=== PATIENT | female | born 2000 | race Two or more races ===

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

== ENCOUNTER 2022-02-20 17:46 | Emergency (ER) | payer MEDICAID, OTHER ==
[~2022-02-20] VITALS: Ht 162.6 cm; Wt 115.6 kg
[2022-02-20 20:19] LABS: Basophils # (auto) 0 10 ^3/uL (0-0.2); Basophils % (auto) 0.3 % (0.0-2.0); Eosinophils # (auto) 0.1 10 ^3/uL (0-0.8); Hematocrit 39.4 % (36.0-46.0); Hemoglobin 13.1 g/dL (12.2-16.2); Lymphocytes # (auto) 0.6 10 ^3/uL (0.4-5.4); Lymphocytes % (auto) 5.6 % (10.0-50.0); Mean Corpuscular Hemoglobin 29.4 pg (28.0-32.0); Mean Corpuscular Hgb Conc. 33.2 g/dL (32.0-36.0); Mean Corpuscular Volume 88.5 fL (80.0-100.0); Monocytes # (auto) 0.7 10 ^3/uL (0-1.3); Monocytes % (auto) 6.1 % (0.0-12.0); Neutrophils # (auto) 9.3 10 ^3/uL (1.6-8.6); Red Blood Cells 4.46 10^6/uL (4.0-5.20); Red Cell Distribution Width 13.9 % (11.8-14.3); White Blood Cell 10.7 10^3/uL (4.4-10.8)
[2022-02-20 20:46] LABS: Albumin 3.2 g/dL (3.4-5.0); Potassium 3.6 mmol/L (3.5-5.1)
[2022-02-20 20:48] LABS: BUN/Creatinine Ratio 10.2
[2022-02-20 20:49] LABS: Bilirubin, Total 0.5 mg/dL (0.2-1.0); Total Protein 7.4 g/dL (6.4-8.2)
[2022-02-20 22:48] LABS: Urine Blood Normal /uL (Negative); Urine Specific Gravity 1.025 (1.001-1.035)
[2022-02-21] MEDS ORDERED: PREN-96 PO (05:36)
[2022-02-21 06:04] VITALS: BP 143/84
== END 2022-02-21 06:14 | disposition home or self-care (01) ==
LOC: ER 17:46
DX: O23.42 Unspecified infection of urinary tract in pregnancy, second trimester (principal); N39.0 Urinary tract infection, site not specified; Z3A.22 22 weeks gestation of pregnancy
CPT/HCPCS: 36415; 76805; 80053; 81003; 84702; 85025

== ENCOUNTER 2022-12-09 14:15 | Inpatient (IN) | payer MEDICAID, OTHER ==
[~2022-12-09] VITALS: Ht 162.6 cm; Wt 110.1 kg
[~2022-12-09 14:15] MED LIST: PREN-96 PO
[2022-12-09 14:57] LABS: Basophils # (auto) 0 10 ^3/uL (0-0.2); Basophils % (auto) 0.2 % (0.0-2.0); Eosinophils # (auto) 0 10 ^3/uL (0-0.8); Eosinophils % (auto) 0.1 % (0.0-7.0); Hematocrit 48.2 % (36.0-46.0); Hemoglobin 15.9 g/dL (12.2-16.2); Lymphocytes # (auto) 0.9 10 ^3/uL (0.4-5.4); Lymphocytes % (auto) 7.1 % (10.0-50.0); Mean Corpuscular Hemoglobin 28.9 pg (28.0-32.0); Mean Corpuscular Hgb Conc. 32.9 g/dL (32.0-36.0); Mean Corpuscular Volume 87.7 fL (80.0-100.0); Monocytes % (auto) 7.6 % (0.0-12.0); Neutrophils # (auto) 10.7 10 ^3/uL (1.6-8.6); Nucleated Red Blood Cells % 0.1 %; Red Cell Distribution Width 18.3 % (11.8-14.3); White Blood Cell 12.6 10^3/uL (4.4-10.8)
[2022-12-09] MEDS ORDERED: SODIUM CHLORIDE 0.9% 2,000 ML IV ONE (15:00)
[2022-12-09] MEDS ORDERED: ONDANSETRON HCL 4 MG/2 ML VIAL IV ONE (15:00)
[2022-12-09 15:41] LABS: Urine Bacteria NONE SEEN /hpf (None Seen); Urine Blood TRACE /uL (Negative); Urine Clarity Clear (Clear); Urine Color Colorless (Yellow); Urine Hyaline Cast FEW /lpf (0 - 2); Urine Mucus FEW (None Seen); Urine Protein, UAD 2+ (Negative); Urine Specific Gravity 1.028 (1.001-1.035); Urine Urobilinogen Normal (Negative); Urine WBC 1 /hpf (0 - 5)
[2022-12-09 16:35] LABS: Alanine Aminotransferase 18 U/L (7-40); Albumin 4.3 g/dL (3.2-4.8); Alkaline Phosphatase 203 U/L (46-116); Anion Gap 17.00001 (5-15); Aspartate Aminotransferase 14 U/L (13-40); Bilirubin, Total 0.6 mg/dL (0.2-1.0); Calcium 8.5 mg/dL (8.7-10.4); Total Protein 7.3 g/dL (5.7-8.2)
[2022-12-09 16:36] LABS: BUN/Creatinine Ratio 4.5 (10.0-20.0)
[2022-12-09 16:37] LABS: Blood Urea Nitrogen < 5 mg/dL (9-23); Carbon Dioxide < 10 mmol/L (20-30); Chloride 106 mmol/L (98-107); Glucose 534 mg/dL (74-106); Potassium 2.7 mmol/L (3.5-5.1); Sodium 133 mmol/L (136-145)
[2022-12-09] MEDS ORDERED: DEXTROSE (50%) 50ML SYRG IV PRN (16:45)
[2022-12-09] MEDS ORDERED: POTASSIUM CHL 20MEQ/100ML 200 ML IV PRN (16:45)
[2022-12-09] MEDS ORDERED: INSULIN LANTUS (GLARGINE) 1 /0.01ml (100units/ml) SC ONE (16:45)
[2022-12-09] MEDS: InsuLIN R (HUMAN) 100 UNITS in SODIUM CHL 0.9% 99 ML IV SCH ×2 (16:45→23:20)
[2022-12-09] MEDS ORDERED: POTASSIUM EFFERVESENT TAB 25 MEQ PO ONE (17:00)
[2022-12-09] MEDS: SODIUM CHLORIDE 0.9% 1,000 ML IV SCH ×2 (17:10→19:48)
[2022-12-09] MEDS ORDERED: hydrALAZINE HCL 20 MG/ML VL IV PRN (17:15)
[2022-12-09] MEDS ORDERED: KETOROLAC TROMETH 30 MG/ML 1ML VIAL IV ONE (17:15)
[2022-12-09] MEDS ORDERED: NITROGLYCERIN 0.4 MG SL TAB SL PRN (17:15)
[2022-12-09] MEDS ORDERED: cefTRIAXone 1GM/50ML D5W 50 ML IV ONE (17:15)
[2022-12-09] MEDS ORDERED: PANTOPRAZOLE 40 MG/10 ML VIAL INJ IV ONE (17:45)
[2022-12-09 18:00] LABS: Phosphorus 1.7 mg/dL (2.4-5.1)
[2022-12-09] MEDS: ACCU-CHEK COMFORT CURVE STRIP VI SCH ×4 (18:00→23:00)
[2022-12-09 18:14] VITALS: PULSE 118; RESP 24; O2SAT 100
[2022-12-09 18:53] LABS: Chloride 109 mmol/L (98-107); Sodium 134 mmol/L (136-145)
[2022-12-09 18:54] LABS: Anion Gap 15.00001 (5-15)
[2022-12-09 18:55] LABS: Calcium 8.5 mg/dL (8.7-10.4)
[2022-12-09 19:00] LABS: Triglycerides 305 mg/dL (< 150)
[2022-12-09 19:01] LABS: BUN/Creatinine Ratio 4.5 (10.0-20.0); Blood Urea Nitrogen < 5 mg/dL (9-23); LDL Cholesterol 241 mg/dL (< 100)
[2022-12-09 19:02] LABS: Carbon Dioxide < 10 mmol/L (20-30); Cholesterol 312 mg/dL (< 200); Glucose 464 mg/dL (74-106); HDL Cholesterol 28 mg/dL (40-59); Potassium 2.6 mmol/L (3.5-5.1)
[2022-12-09 19:30] VITALS: PULSE 101; RESP 34; O2SAT 97
[2022-12-09] MEDS ORDERED: POTASSIUM CHL 20MEQ/100ML 100 ML IV ONE (20:30)
[2022-12-09] MEDS ORDERED: SODIUM CHLORIDE 0.9% 1,000 ML IV SCH ×2 (20:45→22:45)
[2022-12-09] MEDS ORDERED: SODIUM BICARBONATE 8.4 % INJ 50ML VIAL IV ONE ×2 (22:30→23:12)
[2022-12-09] MEDS ORDERED: SODIUM BICARBONATE 50ML VIAL 100 ML in SOD CHL 0.45% 1,000 ML IV SCH (22:30)
[2022-12-09 22:55] LABS: Anion Gap 15.00001 (5-15); Chloride 113 mmol/L (98-107); Potassium 3.3 mmol/L (3.5-5.1); Sodium 138 mmol/L (136-145)
[2022-12-09 22:56] LABS: Calcium 8.1 mg/dL (8.7-10.4)
[2022-12-09 23:01] LABS: Glucose 342 mg/dL (74-106)
[2022-12-09 23:07] LABS: BUN/Creatinine Ratio 5.4 (10.0-20.0); Blood Urea Nitrogen < 5 mg/dL (9-23)
[2022-12-09 23:15] LABS: Carbon Dioxide < 10 mmol/L (20-30)
[2022-12-10] VITALS (63 sets, daily range): BP systolic 124–172; BP diastolic 39–114; PULSE 103–126; RESP 25–36; TEMP 97.6–99.1; O2SAT 96–100
[2022-12-10] MEDS: ACCU-CHEK COMFORT CURVE STRIP VI SCH ×16 (00:24→22:37)
[2022-12-10] MEDS: MORPHINE SULFATE INJ 2 MG/ml SYRG IV PRN ×5 (00:59→23:34)
[2022-12-10] MEDS ORDERED: SODIUM BICARBONATE 50ML VIAL 150 ML in SOD CHL 0.45% 1,000 ML IV SCH ×2 (02:00→02:45)
[2022-12-10] MEDS ORDERED: SODIUM BICARBONATE 8.4 % INJ 50ML VIAL IV ONE ×2 (02:00→10:30)
[2022-12-10] MEDS ORDERED: SODIUM BICARBONATE 8.4% INJ 50ML SYRINGE ONE ×2 (02:20→02:21)
[2022-12-10 04:26] LABS: Basophils # (auto) 0 10 ^3/uL (0-0.2); Basophils % (auto) 0.2 % (0.0-2.0); Eosinophils # (auto) 0 10 ^3/uL (0-0.8); Hematocrit 43.3 % (36.0-46.0); Hemoglobin 14.3 g/dL (12.2-16.2); Lymphocytes # (auto) 1.3 10 ^3/uL (0.4-5.4); Lymphocytes % (auto) 8.9 % (10.0-50.0); Mean Corpuscular Hemoglobin 28.2 pg (28.0-32.0); Mean Corpuscular Volume 85.4 fL (80.0-100.0); Monocytes # (auto) 1.9 10 ^3/uL (0-1.3); Monocytes % (auto) 13.2 % (0.0-12.0); Neutrophils # (auto) 11.4 10 ^3/uL (1.6-8.6); Neutrophils % (auto) 77.7 % (37.0-80.0); Nucleated Red Blood Cells % 0.1 %; Red Blood Cells 5.06 10^6/uL (4.0-5.20); Red Cell Distribution Width 18.5 % (11.8-14.3); White Blood Cell 14.7 10^3/uL (4.4-10.8)
[2022-12-10] MEDS: ONDANSETRON HCL 4 MG/2 ML VIAL IV PRN ×3 (05:36→16:19)
[2022-12-10] MEDS ORDERED: InsuLIN R (HUMAN) 100 UNITS in SODIUM CHL 0.9% 99 ML IV SCH ×2 (06:15→22:45)
[2022-12-10 07:23] LABS: Chloride 113 mmol/L (98-107); Sodium 141 mmol/L (136-145)
[2022-12-10 07:26] LABS: Anion Gap 18.00001 (5-15)
[2022-12-10 07:27] LABS: Calcium 8.8 mg/dL (8.7-10.4)
[2022-12-10 07:32] LABS: Alkaline Phosphatase 203 U/L (46-116); Glucose 250 mg/dL (74-106)
[2022-12-10 07:34] LABS: Aspartate Aminotransferase 19 U/L (13-40); Bilirubin, Total 0.8 mg/dL (0.2-1.0); Total Protein 7.8 g/dL (5.7-8.2)
[2022-12-10 07:48] LABS: Alanine Aminotransferase 22 U/L (7-40); Albumin 4.5 g/dL (3.2-4.8); BUN/Creatinine Ratio 6.5 (10.0-20.0); Blood Urea Nitrogen < 5 mg/dL (9-23)
[2022-12-10 07:54] LABS: Carbon Dioxide < 10 mmol/L (20-30)
[2022-12-10 07:55] LABS: Potassium 1.9 mmol/L (3.5-5.1)
[2022-12-10] MEDS: PANTOPRAZOLE 40 MG/10 ML VIAL INJ IV SCH (08:12)
[2022-12-10] MEDS ORDERED: POTASSIUM CHLORIDE 80 MEQ, LIDOCAINE 1% (LOCAL ANESTH.) 6 ML in SODIUM CHL 0.9% 500 ML IV ONE (08:15)
[2022-12-10] MEDS ORDERED: POTASSIUM CHL 20 Meq TABLET PO ONE (08:15)
[2022-12-10 08:22] LABS: Base Excess -19.3 mmol/L (-2.0-2.0)
[2022-12-10] MEDS ORDERED: POTASSIUM EFFERVESENT TAB 25 MEQ PO ONE (08:30)
[2022-12-10 09:32] LABS: INR 1.04 (0.9-1.15); Partial Thromboplastin Time 28.1 SEC (24.5-34.5); Prothrombin Time 10.9 sec (9.3-11.8)
[2022-12-10] MEDS: cefTRIAXone 1GM/50ML D5W 50 ML IV SCH (09:58)
[2022-12-10] MEDS: ENOXAPARIN SOD 40 MG/0.4 ML SYRINGE SC SCH (09:59)
[2022-12-10] MEDS ORDERED: INSULIN LANTUS (GLARGINE) 1 /0.01ml (100units/ml) SC SCH (10:00)
[2022-12-10] MEDS ORDERED: SOD CHL 0.9%/ KCL 40MEQ 1,000 ML IV SCH (10:15)
[2022-12-10] MEDS: MAGNESIUM SULFATE 1GM/100ML 100 ML IV SCH ×2 (10:41→12:02)
[2022-12-10] MEDS ORDERED: LIDOCAINE 1% (LOCAL ANESTH.) PF 5ml SDV ID ONE (11:15)
[2022-12-10 12:29] LABS: Calcium 9.2 mg/dL (8.5-10.1)
[2022-12-10 12:35] LABS: Glucose 342 mg/dL (74-106)
[2022-12-10 12:40] LABS: BUN/Creatinine Ratio 5.8 (10.0-20.0); Blood Urea Nitrogen < 5 mg/dL (9-23)
[2022-12-10 12:42] LABS: Carbon Dioxide < 10 mmol/L (20-30)
[2022-12-10 12:52] LABS: Anion Gap 19.00001 (5-15); Chloride 113 mmol/L (98-107); Sodium 142 mmol/L (136-145)
[2022-12-10 12:54] LABS: Potassium 2.9 mmol/L (3.5-5.1)
[2022-12-10 16:13] LABS: Chloride 119 mmol/L (98-107); Sodium 144 mmol/L (136-145)
[2022-12-10 16:14] LABS: Anion Gap 15.00001 (5-15); Calcium 9.2 mg/dL (8.7-10.4)
[2022-12-10 16:19] LABS: Glucose 237 mg/dL (74-106)
[2022-12-10 16:48] LABS: Blood Urea Nitrogen < 5 mg/dL (9-23)
[2022-12-10 16:50] LABS: Carbon Dioxide < 10 mmol/L (20-30); Potassium 2.9 mmol/L (3.5-5.1)
[2022-12-10] MEDS: POTASSIUM CHL 20MEQ/100ML 100 ML IV SCH ×3 (17:32→21:33)
[2022-12-10] MEDS: POTASSIUM CHLORIDE 40 MEQ in SOD CHL 0.45% 1,000 ML IV SCH (18:00)
[2022-12-10] MEDS: SODIUM CHLOR 0.9% PF (SALINE LOCK) 10ML VIAL/SYR IV SCH (21:08)
[2022-12-11] VITALS (31 sets, daily range): BP systolic 104–156; BP diastolic 60–107; PULSE 105–130; RESP 21–37; TEMP 97.7–99; O2SAT 96–100
[2022-12-11] MEDS: ACCU-CHEK COMFORT CURVE STRIP VI SCH ×17 (00:55→23:59)
[2022-12-11 01:24] LABS: Chloride 115 mmol/L (98-107); Sodium 138 mmol/L (136-145)
[2022-12-11 01:25] LABS: Anion Gap 13.00001 (5-15); Calcium 9.7 mg/dL (8.7-10.4)
[2022-12-11 01:30] LABS: Glucose 161 mg/dL (74-106)
[2022-12-11 01:36] LABS: Blood Urea Nitrogen < 5 mg/dL (9-23)
[2022-12-11 01:40] LABS: Carbon Dioxide < 10 mmol/L (20-30); Potassium 2.7 mmol/L (3.5-5.1)
[2022-12-11] MEDS: POTASSIUM CHLORIDE 40 MEQ in SOD CHL 0.45% 1,000 ML IV SCH (01:59)
[2022-12-11] MEDS: POTASSIUM CHL 20MEQ/100ML 100 ML IV SCH ×8 (02:46→22:52)
[2022-12-11] MEDS: MORPHINE SULFATE INJ 2 MG/ml SYRG IV PRN ×2 (05:21→19:28)
[2022-12-11] MEDS: ONDANSETRON HCL 4 MG/2 ML VIAL IV PRN ×2 (06:58→15:07)
[2022-12-11 07:30] LABS: Chloride 115 mmol/L (98-107); Sodium 137 mmol/L (136-145)
[2022-12-11 07:31] LABS: Anion Gap 12.00001 (5-15); Basophils # (auto) 0 10 ^3/uL (0-0.2); Basophils % (auto) 0.3 % (0.0-2.0); Eosinophils # (auto) 0 10 ^3/uL (0-0.8); Hematocrit 40.7 % (36.0-46.0); Hemoglobin 13.6 g/dL (12.2-16.2); Lymphocytes # (auto) 1.2 10 ^3/uL (0.4-5.4); Lymphocytes % (auto) 9.5 % (10.0-50.0); Mean Corpuscular Hemoglobin 28.2 pg (28.0-32.0); Mean Corpuscular Hgb Conc. 33.5 g/dL (32.0-36.0); Mean Corpuscular Volume 84.1 fL (80.0-100.0); Monocytes # (auto) 1.8 10 ^3/uL (0-1.3); Monocytes % (auto) 14.1 % (0.0-12.0); Neutrophils # (auto) 9.7 10 ^3/uL (1.6-8.6); Neutrophils % (auto) 76.1 % (37.0-80.0); Nucleated Red Blood Cells % 0.1 %; Red Blood Cells 4.83 10^6/uL (4.0-5.20); Red Cell Distribution Width 18.8 % (11.8-14.3); White Blood Cell 12.7 10^3/uL (4.4-10.8)
[2022-12-11 07:32] LABS: Calcium 9.7 mg/dL (8.7-10.4)
[2022-12-11 07:36] LABS: Glucose 173 mg/dL (74-106)
[2022-12-11 07:37] LABS: Blood Urea Nitrogen < 5 mg/dL (9-23)
[2022-12-11 07:38] LABS: Carbon Dioxide < 10 mmol/L (20-30)
[2022-12-11] MEDS: ACETAMINOPHEN 325 MG TAB PO PRN (08:35)
[2022-12-11] MEDS: PANTOPRAZOLE 40 MG/10 ML VIAL INJ IV SCH (09:21)
[2022-12-11] MEDS: SODIUM CHLOR 0.9% PF (SALINE LOCK) 10ML VIAL/SYR IV SCH ×2 (09:21→21:58)
[2022-12-11] MEDS: ENOXAPARIN SOD 40 MG/0.4 ML SYRINGE SC SCH (09:21)
[2022-12-11] MEDS: cefTRIAXone 1GM/50ML D5W 50 ML IV SCH (09:21)
[2022-12-11] MEDS ORDERED: METOCLOPRAMIDE HCL 5MG/ml INJ 2ml VIAL IV ONE (10:30)
[2022-12-11 10:44] LABS: Rapid Influenza A Negative (Negative); Rapid Influenza B Negative (Negative)
[2022-12-11] MEDS: POTASSIUM CHLORIDE 40 MEQ in D5W 5% 1,000 ML IV SCH ×3 (10:44→20:24)
[2022-12-11 13:07] LABS: Chloride 113 mmol/L (98-107); Sodium 136 mmol/L (136-145)
[2022-12-11 13:08] LABS: Calcium 9.9 mg/dL (8.7-10.4)
[2022-12-11 13:13] LABS: Glucose 231 mg/dL (74-106)
[2022-12-11 13:34] LABS: BUN/Creatinine Ratio 7.4 (10.0-20.0); Blood Urea Nitrogen < 5 mg/dL (9-23)
[2022-12-11 13:35] LABS: Carbon Dioxide < 10 mmol/L (20-30)
[2022-12-11 13:36] LABS: Potassium 2.4 mmol/L (3.5-5.1)
[2022-12-11] MEDS ORDERED: LACTATED RINGER'S 1,000 ML IV ONE (13:45)
[2022-12-11 15:00] LABS: Anion Gap 15.4 (5-15)
[2022-12-11 18:21] LABS: Anion Gap 13.00001 (5-15); Chloride 110 mmol/L (98-107); Sodium 133 mmol/L (136-145)
[2022-12-11 18:22] LABS: Calcium 9.8 mg/dL (8.7-10.4)
[2022-12-11 18:27] LABS: Glucose 241 mg/dL (74-106)
[2022-12-11 19:06] LABS: Blood Urea Nitrogen < 5 mg/dL (9-23)
[2022-12-11 19:07] LABS: Carbon Dioxide < 10 mmol/L (20-30); Potassium 2.5 mmol/L (3.5-5.1)
[2022-12-11] MEDS ORDERED: InsuLIN R (HUMAN) 100 UNITS in SODIUM CHL 0.9% 99 ML IV SCH (21:15)
[2022-12-12] VITALS (27 sets, daily range): BP systolic 119–153; BP diastolic 54–105; PULSE 105–143; RESP 18–33; TEMP 97.9–99.2; O2SAT 95–100
[2022-12-12] MEDS: POTASSIUM CHL 20MEQ/100ML 100 ML IV SCH ×5 (00:53→12:31)
[2022-12-12] MEDS: ACCU-CHEK COMFORT CURVE STRIP VI SCH ×9 (01:34→19:56)
[2022-12-12] MEDS: ONDANSETRON HCL 4 MG/2 ML VIAL IV PRN (02:07)
[2022-12-12] MEDS: MORPHINE SULFATE INJ 2 MG/ml SYRG IV PRN (02:08)
[2022-12-12 04:15] LABS: Basophils # (auto) 0.1 10 ^3/uL (0-0.2); Basophils % (auto) 0.5 % (0.0-2.0); Eosinophils # (auto) 0 10 ^3/uL (0-0.8); Eosinophils % (auto) 0.1 % (0.0-7.0); Hematocrit 40.2 % (36.0-46.0); Hemoglobin 13.9 g/dL (12.2-16.2); Lymphocytes % (auto) 8.3 % (10.0-50.0); Mean Corpuscular Hemoglobin 28.6 pg (28.0-32.0); Mean Corpuscular Hgb Conc. 34.6 g/dL (32.0-36.0); Mean Corpuscular Volume 82.7 fL (80.0-100.0); Monocytes # (auto) 1.5 10 ^3/uL (0-1.3); Monocytes % (auto) 12.9 % (0.0-12.0); Neutrophils # (auto) 9.1 10 ^3/uL (1.6-8.6); Neutrophils % (auto) 78.2 % (37.0-80.0); Nucleated Red Blood Cells % 0.2 %; Red Blood Cells 4.86 10^6/uL (4.0-5.20); Red Cell Distribution Width 18.4 % (11.8-14.3); White Blood Cell 11.6 10^3/uL (4.4-10.8)
[2022-12-12 04:25] LABS: Chloride 109 mmol/L (98-107); Sodium 132 mmol/L (136-145)
[2022-12-12 04:26] LABS: Anion Gap 13.00001 (5-15); Calcium 10.4 mg/dL (8.7-10.4)
[2022-12-12 04:31] LABS: Glucose 260 mg/dL (74-106)
[2022-12-12 04:37] LABS: BUN/Creatinine Ratio 6.7 (10.0-20.0); Blood Urea Nitrogen < 5 mg/dL (9-23)
[2022-12-12 04:39] LABS: Carbon Dioxide < 10 mmol/L (20-30); Potassium 2.6 mmol/L (3.5-5.1)
[2022-12-12] MEDS: POTASSIUM CHLORIDE 40 MEQ in D5W 5% 1,000 ML IV SCH (05:32)
[2022-12-12] MEDS: cefTRIAXone 1GM/50ML D5W 50 ML IV SCH (09:02)
[2022-12-12] MEDS ORDERED: DEXTROSE (50%) 50ML SYRG IV PRN ×2 (09:45→16:30)
[2022-12-12] MEDS ORDERED: SODIUM BICARBONATE 8.4 % INJ 50ML VIAL IV ONE (09:45)
[2022-12-12] MEDS ORDERED: METOPROLOL TARTRATE 1MG/1ML-5ML VIAL IV ONE (09:45)
[2022-12-12] MEDS: PANTOPRAZOLE 40 MG/10 ML VIAL INJ IV SCH (10:44)
[2022-12-12] MEDS: SODIUM CHLOR 0.9% PF (SALINE LOCK) 10ML VIAL/SYR IV SCH ×2 (10:45→21:47)
[2022-12-12] MEDS: ENOXAPARIN SOD 40 MG/0.4 ML SYRINGE SC SCH (10:45)
[2022-12-12] MEDS: SODIUM BICARBONATE 50ML VIAL 150 ML in D5W 5% 1,000 ML IV SCH ×2 (11:01→21:47)
[2022-12-12] MEDS: ACETAMINOPHEN 325 MG TAB PO PRN (11:07)
[2022-12-12] MEDS: DOXYCYCLINE 100MG/250ML 250 ML IV SCH (12:31)
[2022-12-12] MEDS: dilTIAZem HCL 60 MG TAB PO SCH ×2 (12:39→18:17)
[2022-12-12] MEDS: InsuLIN REG 1unit/0.01ml Soln (100units/ml) SC SCH ×3 (12:46→20:02)
[2022-12-12] MEDS: POTASSIUM CHL 20 Meq TABLET PO SCH ×2 (13:31→15:14)
[2022-12-12 13:58] LABS: Amphetamine Screen, Urine Neg (NEGATIVE); Barbiturate Scree,Urine Neg (NEGATIVE); Benzodiazephine Screen, Urine Neg (NEGATIVE); Cannabinoid Screen, Urine Neg (NEGATIVE); Cocaine Screen, Urine Neg (NEGATIVE); Opiate Scree,Urine Neg (NEGATIVE); Phencyclidine Screen, Urine Neg (NEGATIVE)
[2022-12-12 13:59] LABS: Creatinine, Urine 35.77 mg/dL (30.0-125.0)
[2022-12-12 17:49] LABS: Alanine Aminotransferase 24 U/L (7-40); Albumin 4.2 g/dL (3.2-4.8); Alkaline Phosphatase 193 U/L (46-116); Anion Gap 17.00001 (5-15); Aspartate Aminotransferase 9 U/L (13-40); Bilirubin, Total 1.4 mg/dL (0.2-1.0); Calcium 9.3 mg/dL (8.7-10.4); Chloride 104 mmol/L (98-107); Sodium 131 mmol/L (136-145); Total Protein 6.7 g/dL (5.7-8.2)
[2022-12-12 17:51] LABS: Blood Urea Nitrogen < 5 mg/dL (9-23)
[2022-12-12 17:53] LABS: Carbon Dioxide < 10 mmol/L (20-30); Glucose 458 mg/dL (74-106); Potassium 2.9 mmol/L (3.5-5.1)
[2022-12-12] MEDS ORDERED: POTASSIUM CHL 20 Meq TABLET PO ONE ×2 (18:15→22:45)
[2022-12-12] MEDS ORDERED: INSULIN LANTUS (GLARGINE) 1 /0.01ml (100units/ml) SC SCH (22:00)
[2022-12-13] VITALS (45 sets, daily range): BP systolic 110–149; BP diastolic 61–99; PULSE 107–137; RESP 22–34; TEMP 97.9–99.1; O2SAT 94–99
[2022-12-13] MEDS: dilTIAZem HCL 60 MG TAB PO SCH ×4 (00:06→18:04)
[2022-12-13] MEDS: DOXYCYCLINE 100MG/250ML 250 ML IV SCH ×2 (00:07→12:13)
[2022-12-13] MEDS: InsuLIN REG 1unit/0.01ml Soln (100units/ml) SC SCH ×7 (00:07→23:57)
[2022-12-13] MEDS: ACCU-CHEK COMFORT CURVE STRIP VI SCH ×7 (00:08→23:57)
[2022-12-13 04:28] LABS: Anion Gap 17.00001 (5-15); Chloride 103 mmol/L (98-107); Potassium 3.1 mmol/L (3.5-5.1); Sodium 130 mmol/L (136-145)
[2022-12-13 04:29] LABS: Calcium 10.1 mg/dL (8.7-10.4)
[2022-12-13 04:34] LABS: BUN/Creatinine Ratio 8.1 (10.0-20.0); Blood Urea Nitrogen 7 mg/dL (9-23)
[2022-12-13 04:38] LABS: Carbon Dioxide < 10 mmol/L (20-30); Glucose 435 mg/dL (74-106)
[2022-12-13] MEDS ORDERED: POTASSIUM CHL 20 Meq TABLET PO ONE ×2 (04:45→12:00)
[2022-12-13] MEDS: MORPHINE SULFATE INJ 2 MG/ml SYRG IV PRN (07:30)
[2022-12-13] MEDS ORDERED: AZITHROMYCIN 500MG/ 250ML 250 ML IV SCH (10:00)
[2022-12-13] MEDS: PANTOPRAZOLE 40 MG/10 ML VIAL INJ IV SCH (10:10)
[2022-12-13] MEDS: ENOXAPARIN SOD 40 MG/0.4 ML SYRINGE SC SCH (10:11)
[2022-12-13] MEDS: SODIUM CHLOR 0.9% PF (SALINE LOCK) 10ML VIAL/SYR IV SCH ×2 (10:11→22:00)
[2022-12-13] MEDS: INSULIN LANTUS (GLARGINE) 1 /0.01ml (100units/ml) SC SCH ×2 (10:25→22:00)
[2022-12-13] MEDS: SODIUM BICARBONATE 50ML VIAL 150 ML in D5W 5% 1,000 ML IV SCH (10:26)
[2022-12-13 12:39] LABS: Glucose 371 mg/dL (74-106)
[2022-12-13 12:40] LABS: BUN/Creatinine Ratio 7.1 (10.0-20.0); Blood Urea Nitrogen 6 mg/dL (9-23)
[2022-12-13 12:55] LABS: Chloride 106 mmol/L (98-107); Potassium 3.2 mmol/L (3.5-5.1); Sodium 131 mmol/L (136-145)
[2022-12-13 12:56] LABS: Anion Gap 15.00001 (5-15); Calcium 9.8 mg/dL (8.7-10.4); Carbon Dioxide < 10 mmol/L (20-30)
[2022-12-13] MEDS ORDERED: POTASSIUM EFFERVESENT TAB 25 MEQ PO ONE (14:15)
[2022-12-13] MEDS ORDERED: POTASSIUM EFFERVESENT TAB 25 MEQ ONE (14:17)
[2022-12-13] MEDS ORDERED: LACTULOSE 20Gm/30ML SOLN PO PRN (16:45)
[2022-12-13] MEDS ORDERED: POTASSIUM EFFERVESENT TAB 25 MEQ GT SCH (18:00)
[2022-12-13] MEDS ORDERED: POTASSIUM EFFERVESENT TAB 25 MEQ GT ONE (18:15)
[2022-12-13 21:40] LABS: Chloride 104 mmol/L (98-107); Sodium 128 mmol/L (136-145)
[2022-12-13 21:41] LABS: Calcium 10.2 mg/dL (8.7-10.4)
[2022-12-13 21:43] LABS: Potassium 5.2 mmol/L (3.5-5.1)
[2022-12-13 21:46] LABS: BUN/Creatinine Ratio 6.6 (10.0-20.0); Blood Urea Nitrogen 6 mg/dL (9-23); Glucose 358 mg/dL (74-106)
[2022-12-13 21:50] LABS: Anion Gap 14.00001 (5-15)
[2022-12-13 21:51] LABS: Carbon Dioxide < 10 mmol/L (20-30)
[2022-12-13] MEDS ORDERED: SODIUM ZIRCONIUM CYCL 10 GM PAK ONE (22:30)
[2022-12-13] MEDS ORDERED: SODIUM ZIRCONIUM CYCL 10 GM PAK PO ONE (22:30)
[2022-12-14] VITALS (35 sets, daily range): BP systolic 129–155; BP diastolic 77–94; PULSE 100–127; RESP 20–30; TEMP 97.9–99; O2SAT 93–99
[2022-12-14] MEDS: dilTIAZem HCL 60 MG TAB PO SCH ×5 (00:05→18:16)
[2022-12-14] MEDS: DOXYCYCLINE 100MG/250ML 250 ML IV SCH ×2 (00:06→12:50)
[2022-12-14] MEDS: ACCU-CHEK COMFORT CURVE STRIP VI SCH ×5 (04:00→20:20)
[2022-12-14] MEDS: InsuLIN REG 1unit/0.01ml Soln (100units/ml) SC SCH ×5 (04:00→20:21)
[2022-12-14 07:55] LABS: Calcium 10.4 mg/dL (8.5-10.1)
[2022-12-14 08:00] LABS: Glucose 270 mg/dL (74-106)
[2022-12-14 08:01] LABS: BUN/Creatinine Ratio 7.1 (10.0-20.0); Blood Urea Nitrogen 6 mg/dL (9-23)
[2022-12-14 08:05] LABS: Carbon Dioxide < 10 mmol/L (20-30)
[2022-12-14] MEDS: INSULIN LANTUS (GLARGINE) 1 /0.01ml (100units/ml) SC SCH ×2 (08:17→22:13)
[2022-12-14 08:42] LABS: Anion Gap 17.00001 (5-15); Chloride 104 mmol/L (98-107); Potassium 3.6 mmol/L (3.5-5.1); Sodium 131 mmol/L (136-145)
[2022-12-14 08:59] LABS: Hematocrit 39.8 % (36.0-46.0); Hemoglobin 13.5 g/dL (12.2-16.2); Mean Corpuscular Hemoglobin 28.5 pg (28.0-32.0); Mean Corpuscular Hgb Conc. 33.9 g/dL (32.0-36.0); Red Blood Cells 4.73 10^6/uL (4.0-5.20); Red Cell Distribution Width 18.8 % (11.8-14.3); White Blood Cell 12.1 10^3/uL (4.4-10.8)
[2022-12-14 09:01] LABS: Basophils % (manual) 0 (0.0-2.0); Blast Cells 0; Eosinophils % (manual) 0 (0-7); Metamyelocytes % 0; Myelocytes % 0; Promyelocytes % 0; Reactive Lymphocytes 0
[2022-12-14 09:19] LABS: Band Neutrophils % (manual) 7; Lymphocytes % (manual) 10 (10.0-50.0); Monocytes % (manual) 10 (0-12)
[2022-12-14 09:20] LABS: Platelet Estimate Adequate
[2022-12-14] MEDS: PANTOPRAZOLE 40 MG/10 ML VIAL INJ IV SCH (09:44)
[2022-12-14] MEDS: SODIUM CHLOR 0.9% PF (SALINE LOCK) 10ML VIAL/SYR IV SCH ×2 (09:45→22:12)
[2022-12-14] MEDS: ENOXAPARIN SOD 40 MG/0.4 ML SYRINGE SC SCH (09:45)
[2022-12-14] MEDS ORDERED: ALBUTEROL SULF 2.5 MG/0.5ML(0.5%) NEB SOLN NEB PRN (11:15)
[2022-12-14 14:31] LABS: Chloride 103 mmol/L (98-107); Sodium 127 mmol/L (136-145)
[2022-12-14 14:32] LABS: Calcium 9.9 mg/dL (8.7-10.4)
[2022-12-14 14:37] LABS: Blood Urea Nitrogen 7 mg/dL (9-23); Carbon Dioxide < 10 mmol/L (20-30); Glucose 361 mg/dL (74-106); Potassium 2.9 mmol/L (3.5-5.1)
[2022-12-14 14:41] LABS: Anion Gap 17 (5-15)
[2022-12-14] MEDS ORDERED: POTASSIUM CHL 20 Meq TABLET PO ONE (14:45)
[2022-12-14] MEDS ORDERED: LIDOCAINE HCL 5 % TOP OINT 35 GM TOP PRN (14:45)
[2022-12-14] MEDS ORDERED: CATHFLO ACTIVASE (ALTEPLASE) 2 MG VIAL IV ONE (15:00)
[2022-12-14 16:17] LABS: Urine Bacteria NONE SEEN /hpf (None Seen); Urine Blood 2+ /uL (Negative); Urine Budding Yeast MANY /hpf (None Seen); Urine Clarity HAZY (Clear); Urine Mucus FEW (None Seen); Urine Protein, UAD 2+ (Negative); Urine Specific Gravity 1.025 (1.001-1.035); Urine Urobilinogen Normal (Negative); Urine WBC 23 /hpf (0 - 5)
[2022-12-14 16:18] LABS: Urine Color YELLOW (Yellow)
[2022-12-14] MEDS: ONDANSETRON HCL 4 MG/2 ML VIAL IV PRN (18:14)
[2022-12-14] MEDS: MORPHINE SULFATE INJ 2 MG/ml SYRG IV PRN (19:51)
[2022-12-14] MEDS ORDERED: POTASSIUM CHL 20 Meq TABLET PO SCH (22:00)
[2022-12-14 22:30] LABS: Alanine Aminotransferase 22 U/L (7-40); Alkaline Phosphatase 201 U/L (46-116); Anion Gap 16.00001 (5-15); Aspartate Aminotransferase 27 U/L (13-40); BUN/Creatinine Ratio 9.2 (10.0-20.0); Bilirubin, Total 0.4 mg/dL (0.2-1.0); Blood Urea Nitrogen 8 mg/dL (9-23); Calcium 10.2 mg/dL (8.7-10.4); Chloride 103 mmol/L (98-107); Glucose 337 mg/dL (74-106); Sodium 129 mmol/L (136-145); Total Protein 7.7 g/dL (5.7-8.2)
[2022-12-14 22:46] LABS: Carbon Dioxide < 10 mmol/L (20-30)
[2022-12-15] VITALS (22 sets, daily range): BP systolic 126–154; BP diastolic 86–101; PULSE 99–126; RESP 18–28; TEMP 97.9–98.7; O2SAT 92–99
[2022-12-15] MEDS: ACCU-CHEK COMFORT CURVE STRIP VI SCH ×12 (00:25→22:37)
[2022-12-15] MEDS: dilTIAZem HCL 60 MG TAB PO SCH ×4 (00:25→18:13)
[2022-12-15] MEDS: DOXYCYCLINE 100MG/250ML 250 ML IV SCH (00:26)
[2022-12-15] MEDS: InsuLIN REG 1unit/0.01ml Soln (100units/ml) SC SCH ×4 (00:36→12:02)
[2022-12-15 03:59] LABS: Hemoglobin 12.9 g/dL (12.2-16.2); Mean Corpuscular Hemoglobin 28.3 pg (28.0-32.0); Mean Corpuscular Volume 83.3 fL (80.0-100.0); Red Blood Cells 4.56 10^6/uL (4.0-5.20); Red Cell Distribution Width 19.1 % (11.8-14.3); White Blood Cell 12.6 10^3/uL (4.4-10.8)
[2022-12-15 04:11] LABS: Basophils % (manual) 0 (0.0-2.0); Blast Cells 0; Eosinophils % (manual) 0 (0-7); Metamyelocytes % 0; Myelocytes % 0; Promyelocytes % 0; Reactive Lymphocytes 0
[2022-12-15 04:15] LABS: Alanine Aminotransferase 21 U/L (7-40); Alkaline Phosphatase 197 U/L (46-116); Anion Gap 16.00001 (5-15); Aspartate Aminotransferase 20 U/L (13-40); Blood Urea Nitrogen 8 mg/dL (9-23); Calcium 10.3 mg/dL (8.7-10.4); Chloride 104 mmol/L (98-107); Glucose 337 mg/dL (74-106); Sodium 130 mmol/L (136-145)
[2022-12-15 04:16] LABS: Bilirubin, Total 0.5 mg/dL (0.2-1.0); Total Protein 7.8 g/dL (5.7-8.2)
[2022-12-15 04:28] LABS: Carbon Dioxide < 10 mmol/L (20-30)
[2022-12-15 04:42] LABS: Band Neutrophils % (manual) 8; Lymphocytes % (manual) 13 (10.0-50.0); Monocytes % (manual) 12 (0-12); Platelet Estimate Adequate
[2022-12-15] MEDS: POTASSIUM CHL 20MEQ/100ML 100 ML IV SCH ×2 (06:36→08:26)
[2022-12-15] MEDS: SODIUM CHLOR 0.9% PF (SALINE LOCK) 10ML VIAL/SYR IV SCH ×2 (08:26→21:45)
[2022-12-15] MEDS: PANTOPRAZOLE 40 MG/10 ML VIAL INJ IV SCH (08:26)
[2022-12-15] MEDS: ENOXAPARIN SOD 40 MG/0.4 ML SYRINGE SC SCH (08:26)
[2022-12-15] MEDS: INSULIN LANTUS (GLARGINE) 1 /0.01ml (100units/ml) SC SCH (08:39)
[2022-12-15] MEDS ORDERED: INSULIN LANTUS (GLARGINE) 1 /0.01ml (100units/ml) SC ONE (10:15)
[2022-12-15] MEDS ORDERED: INSULIN LANTUS (GLARGINE) 1 /0.01ml (100units/ml) SC SCH ×2 (10:15→22:00)
[2022-12-15] MEDS ORDERED: cefTRIAXone 1GM/50ML D5W 50 ML IV ONE (10:15)
[2022-12-15 10:49] LABS: Urine Bacteria NONE SEEN /hpf (None Seen); Urine Blood 3+ /uL (Negative); Urine Budding Yeast MANY /hpf (None Seen); Urine Clarity CLOUDY (Clear); Urine Protein, UAD 2+ (Negative); Urine Specific Gravity 1.026 (1.001-1.035); Urine Urobilinogen Normal (Negative); Urine WBC 9 /hpf (0 - 5)
[2022-12-15 10:50] LABS: Urine Color Yellow (Yellow)
[2022-12-15] MEDS ORDERED: DEXTROSE (50%) 50ML SYRG IV PRN ×2 (11:00→16:15)
[2022-12-15] MEDS ORDERED: POTASSIUM CHL 20MEQ/100ML 100 ML IV ONE (11:45)
[2022-12-15 13:06] LABS: Alanine Aminotransferase 22 U/L (7-40); Albumin 4.1 g/dL (3.2-4.8); Alkaline Phosphatase 198 U/L (46-116); Aspartate Aminotransferase 20 U/L (13-40); BUN/Creatinine Ratio 9.5 (10.0-20.0); Bilirubin, Total 0.4 mg/dL (0.2-1.0); Blood Urea Nitrogen 8 mg/dL (9-23); Calcium 10.4 mg/dL (8.7-10.4); Chloride 106 mmol/L (98-107); Glucose 305 mg/dL (74-106); Potassium 3.8 mmol/L (3.5-5.1); Sodium 130 mmol/L (136-145); Total Protein 7.9 g/dL (5.7-8.2)
[2022-12-15 13:08] LABS: Anion Gap 14 (5-15); Carbon Dioxide < 10 mmol/L (20-30)
[2022-12-15] MEDS: InsuLIN R (HUMAN) 100 UNITS in SODIUM CHL 0.9% 99 ML IV SCH (13:30)
[2022-12-15] MEDS ORDERED: POTASSIUM CHL 20 Meq TABLET PO SCH (14:00)
[2022-12-15 15:44] LABS: Chloride 105 mmol/L (98-107); Potassium 3.6 mmol/L (3.5-5.1); Sodium 128 mmol/L (136-145)
[2022-12-15 15:45] LABS: Anion Gap 13.00001 (5-15)
[2022-12-15 15:46] LABS: Calcium 10.2 mg/dL (8.7-10.4)
[2022-12-15 15:51] LABS: BUN/Creatinine Ratio 9.4 (10.0-20.0); Blood Urea Nitrogen 8 mg/dL (9-23); Glucose 350 mg/dL (74-106)
[2022-12-15 15:57] LABS: Carbon Dioxide < 10 mmol/L (20-30)
[2022-12-15] MEDS ORDERED: POTASSIUM CHL 20MEQ/100ML 100 ML IV PRN (16:15)
[2022-12-15] MEDS: POTASSIUM CHL 20MEQ/100ML 100 ML IV PRN ×2 (16:34→21:01)
[2022-12-15 20:12] LABS: Anion Gap 14.00001 (5-15); Chloride 103 mmol/L (98-107); Potassium 3.2 mmol/L (3.5-5.1); Sodium 127 mmol/L (136-145)
[2022-12-15 20:14] LABS: Calcium 9.9 mg/dL (8.7-10.4)
[2022-12-15 20:18] LABS: BUN/Creatinine Ratio 10.1 (10.0-20.0); Blood Urea Nitrogen 8 mg/dL (9-23); Glucose 362 mg/dL (74-106)
[2022-12-15 20:29] LABS: Carbon Dioxide < 10 mmol/L (20-30)
[2022-12-16] VITALS (27 sets, daily range): BP systolic 118–151; BP diastolic 72–96; PULSE 90–135; RESP 15–28; TEMP 97.5–98.8; O2SAT 95–100
[2022-12-16] MEDS: ACCU-CHEK COMFORT CURVE STRIP VI SCH ×16 (00:15→22:50)
[2022-12-16] MEDS: dilTIAZem HCL 60 MG TAB PO SCH ×2 (00:16→06:00)
[2022-12-16 00:57] LABS: Alanine Aminotransferase 21 U/L (7-40); Albumin 3.8 g/dL (3.2-4.8); Alkaline Phosphatase 188 U/L (46-116); Anion Gap 15.00001 (5-15); Aspartate Aminotransferase 16 U/L (13-40); BUN/Creatinine Ratio 7.5 (10.0-20.0); Bilirubin, Total 0.4 mg/dL (0.2-1.0); Blood Urea Nitrogen 6 mg/dL (9-23); Calcium 9.8 mg/dL (8.7-10.4); Chloride 104 mmol/L (98-107); Glucose 314 mg/dL (74-106); Potassium 3.3 mmol/L (3.5-5.1); Sodium 129 mmol/L (136-145); Total Protein 7.4 g/dL (5.7-8.2)
[2022-12-16 01:24] LABS: Carbon Dioxide < 10 mmol/L (20-30)
[2022-12-16] MEDS ORDERED: POTASSIUM CHL 20MEQ/100ML 100 ML IV ONE ×4 (01:37→15:00)
[2022-12-16] MEDS: POTASSIUM CHL 20MEQ/100ML 100 ML IV PRN ×8 (01:38→23:03)
[2022-12-16 05:12] LABS: Hematocrit 34.3 % (36.0-46.0); Hemoglobin 11.9 g/dL (12.2-16.2); Mean Corpuscular Hemoglobin 28.8 pg (28.0-32.0); Mean Corpuscular Hgb Conc. 34.8 g/dL (32.0-36.0); Mean Corpuscular Volume 82.7 fL (80.0-100.0); Red Blood Cells 4.14 10^6/uL (4.0-5.20); Red Cell Distribution Width 18.3 % (11.8-14.3); White Blood Cell 10.9 10^3/uL (4.4-10.8)
[2022-12-16 05:20] LABS: Band Neutrophils % (manual) 0; Basophils % (manual) 0 (0.0-2.0); Blast Cells 0; Metamyelocytes % 0; Promyelocytes % 0; Reactive Lymphocytes 0
[2022-12-16 05:27] LABS: Alanine Aminotransferase 20 U/L (7-40); Albumin 3.7 g/dL (3.2-4.8); Alkaline Phosphatase 179 U/L (46-116); Anion Gap 15.00001 (5-15); Aspartate Aminotransferase 15 U/L (13-40); BUN/Creatinine Ratio 8.3 (10.0-20.0); Bilirubin, Total 0.4 mg/dL (0.2-1.0); Blood Urea Nitrogen 6 mg/dL (9-23); Calcium 9.6 mg/dL (8.7-10.4); Chloride 103 mmol/L (98-107); Glucose 288 mg/dL (74-106); Sodium 128 mmol/L (136-145); Total Protein 7.2 g/dL (5.7-8.2)
[2022-12-16 05:40] LABS: Carbon Dioxide < 10 mmol/L (20-30); Potassium 2.8 mmol/L (3.5-5.1)
[2022-12-16 06:04] LABS: Eosinophils % (manual) 1 (0-7); Lymphocytes % (manual) 20 (10.0-50.0); Monocytes % (manual) 6 (0-12); Myelocytes % 1; Platelet Estimate Adequate
[2022-12-16] MEDS: SODIUM CHLOR 0.9% PF (SALINE LOCK) 10ML VIAL/SYR IV SCH ×2 (07:07→21:09)
[2022-12-16] MEDS: PANTOPRAZOLE 40 MG/10 ML VIAL INJ IV SCH (07:27)
[2022-12-16] MEDS: cefTRIAXone 1GM/50ML D5W 50 ML IV SCH (07:28)
[2022-12-16] MEDS: ENOXAPARIN SOD 40 MG/0.4 ML SYRINGE SC SCH (07:28)
[2022-12-16] MEDS ORDERED: SODIUM BICARBONATE 8.4 % INJ 50ML VIAL IV ONE (09:30)
[2022-12-16] MEDS: THIAMINE HCL 100 MG TAB PO SCH (10:15)
[2022-12-16] MEDS: B-COMPLEX W/ C & FOLIC ACID(NEPHROVITE TAB) PO SCH (10:15)
[2022-12-16] MEDS: dilTIAZem HCL 180MG ER CAP PO SCH (10:30)
[2022-12-16] MEDS: INSULIN LANTUS (GLARGINE) 1 /0.01ml (100units/ml) SC SCH (11:00)
[2022-12-16] MEDS: POTASSIUM CHLORIDE 40 MEQ in SOD CHL 0.45% 1,000 ML IV SCH ×2 (11:00→19:42)
[2022-12-16] MEDS: InsuLIN R (HUMAN) 100 UNITS in SODIUM CHL 0.9% 99 ML IV SCH ×2 (11:49→17:15)
[2022-12-16 13:10] LABS: Alanine Aminotransferase 20 U/L (7-40); Albumin 3.8 g/dL (3.2-4.8); Alkaline Phosphatase 181 U/L (46-116); Anion Gap 15 (5-15); Aspartate Aminotransferase 14 U/L (13-40); Blood Urea Nitrogen 6 mg/dL (9-23); Calcium 9.2 mg/dL (8.7-10.4); Carbon Dioxide 12 mmol/L (20-30); Chloride 101 mmol/L (98-107); Glucose 341 mg/dL (74-106); Sodium 128 mmol/L (136-145)
[2022-12-16 13:11] LABS: Bilirubin, Total 0.5 mg/dL (0.2-1.0); Total Protein 7.1 g/dL (5.7-8.2)
[2022-12-16 13:13] LABS: Potassium 2.9 mmol/L (3.5-5.1)
[2022-12-16 13:15] LABS: Sodium Urine 54 mmol/L (40-220)
[2022-12-16] MEDS ORDERED: POTASSIUM CHL 20MEQ/100ML 200 ML IV ONE (13:22)
[2022-12-16] MEDS ORDERED: POTASSIUM CHL 20MEQ/100ML 100 ML IV SCH (15:15)
[2022-12-16] MEDS ORDERED: DEXTROSE (50%) 50ML SYRG IV PRN (15:30)
[2022-12-16] MEDS ORDERED: FLUCONAZOLE 100 MG TAB PO ONE (15:45)
[2022-12-17] VITALS (29 sets, daily range): BP systolic 120–150; BP diastolic 62–90; PULSE 93–138; RESP 17–31; TEMP 97.8–98.5; O2SAT 94–100
[2022-12-17 00:56] LABS: Alanine Aminotransferase 16 U/L (7-40); Albumin 3.5 g/dL (3.2-4.8); Alkaline Phosphatase 164 U/L (46-116); Anion Gap 12 (5-15); Aspartate Aminotransferase 11 U/L (13-40); BUN/Creatinine Ratio 6.3 (10.0-20.0); Bilirubin, Total 0.4 mg/dL (0.2-1.0); Blood Urea Nitrogen 5 mg/dL (9-23); Calcium 8.7 mg/dL (8.7-10.4); Carbon Dioxide 12 mmol/L (20-30); Chloride 106 mmol/L (98-107); Glucose 320 mg/dL (74-106); Sodium 130 mmol/L (136-145); Total Protein 6.5 g/dL (5.7-8.2)
[2022-12-17] MEDS: ACCU-CHEK COMFORT CURVE STRIP VI SCH ×16 (01:30→22:30)
[2022-12-17] MEDS: POTASSIUM CHL 20MEQ/100ML 100 ML IV PRN ×6 (04:12→23:57)
[2022-12-17 04:46] LABS: Hematocrit 33.6 % (36.0-46.0); Hemoglobin 11.6 g/dL (12.2-16.2); Mean Corpuscular Hemoglobin 28.2 pg (28.0-32.0); Mean Corpuscular Hgb Conc. 34.5 g/dL (32.0-36.0); Mean Corpuscular Volume 81.7 fL (80.0-100.0); Red Blood Cells 4.11 10^6/uL (4.0-5.20); Red Cell Distribution Width 18.8 % (11.8-14.3); White Blood Cell 13.2 10^3/uL (4.4-10.8)
[2022-12-17 04:53] LABS: Basophils % (manual) 0 (0.0-2.0); Blast Cells 0; Eosinophils % (manual) 0 (0-7); Metamyelocytes % 0; Promyelocytes % 0; Reactive Lymphocytes 0
[2022-12-17] MEDS: POTASSIUM CHLORIDE 40 MEQ in SOD CHL 0.45% 1,000 ML IV SCH ×2 (05:54→21:58)
[2022-12-17 07:01] LABS: Band Neutrophils % (manual) 8; Lymphocytes % (manual) 29 (10.0-50.0); Monocytes % (manual) 12 (0-12); Myelocytes % 4; Platelet Estimate Adequate
[2022-12-17] MEDS: SODIUM CHLOR 0.9% PF (SALINE LOCK) 10ML VIAL/SYR IV SCH ×2 (07:17→21:59)
[2022-12-17] MEDS: ENOXAPARIN SOD 40 MG/0.4 ML SYRINGE SC SCH (07:32)
[2022-12-17] MEDS: B-COMPLEX W/ C & FOLIC ACID(NEPHROVITE TAB) PO SCH (07:32)
[2022-12-17] MEDS: PANTOPRAZOLE 40 MG/10 ML VIAL INJ IV SCH (07:32)
[2022-12-17] MEDS: FLUCONAZOLE 100 MG TAB PO SCH (07:32)
[2022-12-17] MEDS: THIAMINE HCL 100 MG TAB PO SCH (07:32)
[2022-12-17] MEDS: cefTRIAXone 1GM/50ML D5W 50 ML IV SCH (07:33)
[2022-12-17] MEDS: dilTIAZem HCL 180MG ER CAP PO SCH ×3 (07:33→10:00)
[2022-12-17] MEDS: INSULIN LANTUS (GLARGINE) 1 /0.01ml (100units/ml) SC SCH (07:47)
[2022-12-17 08:06] LABS: RPR Non Reactive (Non Reactive)
[2022-12-17] MEDS: InsuLIN R (HUMAN) 100 UNITS in SODIUM CHL 0.9% 99 ML IV SCH ×2 (09:27→23:59)
[2022-12-17] MEDS ORDERED: POLYETHYLENE GLYCOL 17 GM PWDR PO ONE (09:45)
[2022-12-17] MEDS ORDERED: INSULIN LANTUS (GLARGINE) 1 /0.01ml (100units/ml) SC SCH (10:00)
[2022-12-17] MEDS ORDERED: levoFLOXacin 500MG 100 ML IV SCH (10:00)
[2022-12-17 12:32] LABS: Alanine Aminotransferase 19 U/L (7-40); Albumin 3.7 g/dL (3.2-4.8); Alkaline Phosphatase 170 U/L (46-116); Anion Gap 13 (5-15); Aspartate Aminotransferase 11 U/L (13-40); BUN/Creatinine Ratio 8.8 (10.0-20.0); Bilirubin, Total 0.4 mg/dL (0.2-1.0); Blood Urea Nitrogen 6 mg/dL (9-23); Carbon Dioxide 14 mmol/L (20-30); Chloride 104 mmol/L (98-107); Glucose 327 mg/dL (74-106); Potassium 3.3 mmol/L (3.5-5.1); Sodium 131 mmol/L (136-145); Total Protein 6.7 g/dL (5.7-8.2)
[2022-12-17] MEDS: ceFAZolin 2 GM/D5W100ml 100 ML IV SCH ×2 (13:50→21:56)
[2022-12-17] MEDS ORDERED: ceFAZolin 1GM/50ML 50 ML IV SCH (14:00)
[2022-12-17 17:42] LABS: Chloride 103 mmol/L (98-107); Sodium 131 mmol/L (136-145)
[2022-12-17 17:43] LABS: Anion Gap 13 (5-15); Carbon Dioxide 15 mmol/L (20-30)
[2022-12-17 17:44] LABS: Calcium 9.1 mg/dL (8.7-10.4)
[2022-12-17 17:49] LABS: Magnesium 1.7 mg/dL (1.6-2.6)
[2022-12-17 18:21] LABS: Blood Urea Nitrogen < 5 mg/dL (9-23)
[2022-12-17 18:22] LABS: Glucose 424 mg/dL (74-106)
[2022-12-17] MEDS ORDERED: ceFAZolin 2 GM/D5W100ml 0 ML IV ONE (21:41)
[2022-12-18] VITALS (25 sets, daily range): BP systolic 99–128; BP diastolic 49–71; PULSE 89–111; RESP 14–27; TEMP 97.9–99.1; O2SAT 96–100
[2022-12-18] MEDS: ACCU-CHEK COMFORT CURVE STRIP VI SCH ×16 (00:02→22:30)
[2022-12-18] MEDS: POTASSIUM CHLORIDE 40 MEQ in SOD CHL 0.45% 1,000 ML IV SCH ×2 (02:34→13:11)
[2022-12-18] MEDS: POTASSIUM CHL 20MEQ/100ML 100 ML IV PRN ×6 (03:45→14:15)
[2022-12-18] MEDS: ceFAZolin 2 GM/D5W100ml 100 ML IV SCH ×3 (05:56→22:21)
[2022-12-18 07:14] LABS: Hematocrit 32.2 % (36.0-46.0); Hemoglobin 11.1 g/dL (12.2-16.2); Mean Corpuscular Hemoglobin 28.6 pg (28.0-32.0); Mean Corpuscular Hgb Conc. 34.5 g/dL (32.0-36.0); Red Blood Cells 3.88 10^6/uL (4.0-5.20); Red Cell Distribution Width 18.5 % (11.8-14.3); White Blood Cell 10.3 10^3/uL (4.4-10.8)
[2022-12-18 07:18] LABS: Band Neutrophils % (manual) 0; Basophils % (manual) 0 (0.0-2.0); Blast Cells 0; Metamyelocytes % 0; Promyelocytes % 0; Reactive Lymphocytes 0
[2022-12-18 07:37] LABS: Anion Gap 10 (5-15); Carbon Dioxide 19 mmol/L (20-30); Chloride 108 mmol/L (98-107); Potassium 3.3 mmol/L (3.5-5.1); Sodium 137 mmol/L (136-145)
[2022-12-18 07:38] LABS: Calcium 9.1 mg/dL (8.7-10.4)
[2022-12-18 07:42] LABS: Glucose 260 mg/dL (74-106)
[2022-12-18 07:43] LABS: Magnesium 1.9 mg/dL (1.6-2.6)
[2022-12-18 07:44] LABS: BUN/Creatinine Ratio 7.1 (10.0-20.0); Blood Urea Nitrogen < 5 mg/dL (9-23)
[2022-12-18 08:52] LABS: Eosinophils % (manual) 4 (0-7); Lymphocytes % (manual) 29 (10.0-50.0); Monocytes % (manual) 11 (0-12); Myelocytes % 2; Platelet Estimate Adequate
[2022-12-18] MEDS: ENOXAPARIN SOD 40 MG/0.4 ML SYRINGE SC SCH (09:48)
[2022-12-18] MEDS: B-COMPLEX W/ C & FOLIC ACID(NEPHROVITE TAB) PO SCH (09:48)
[2022-12-18] MEDS: PANTOPRAZOLE 40 MG/10 ML VIAL INJ IV SCH (09:48)
[2022-12-18] MEDS: THIAMINE HCL 100 MG TAB PO SCH (09:49)
[2022-12-18] MEDS: FLUCONAZOLE 100 MG TAB PO SCH (09:52)
[2022-12-18] MEDS: dilTIAZem HCL 180MG ER CAP PO SCH (09:52)
[2022-12-18] MEDS: SODIUM CHLOR 0.9% PF (SALINE LOCK) 10ML VIAL/SYR IV SCH ×2 (09:53→22:21)
[2022-12-18] MEDS: INSULIN LANTUS (GLARGINE) 1 /0.01ml (100units/ml) SC SCH (10:27)
[2022-12-18 16:33] LABS: Chloride 103 mmol/L (98-107); Potassium 3.7 mmol/L (3.5-5.1)
[2022-12-18 16:34] LABS: Anion Gap 8 (5-15); Calcium 8.6 mg/dL (8.7-10.4); Carbon Dioxide 19 mmol/L (20-30)
[2022-12-18 16:45] LABS: BUN/Creatinine Ratio 6.6 (10.0-20.0); Blood Urea Nitrogen < 5 mg/dL (9-23); Sodium 130 mmol/L (136-145)
[2022-12-18 16:46] LABS: Glucose 419 mg/dL (74-106)
[2022-12-18] MEDS: InsuLIN R (HUMAN) 100 UNITS in SODIUM CHL 0.9% 99 ML IV SCH (18:01)
[2022-12-18] MEDS ORDERED: INSULIN LANTUS (GLARGINE) 1 /0.01ml (100units/ml) SC SCH (22:00)
[2022-12-19] VITALS (13 sets, daily range): BP systolic 101–120; BP diastolic 55–73; PULSE 88–108; RESP 15–24; TEMP 97.5–98.5; O2SAT 93–100
[2022-12-19] MEDS: ACCU-CHEK COMFORT CURVE STRIP VI SCH ×19 (00:16→21:37)
[2022-12-19] MEDS: POTASSIUM CHLORIDE 40 MEQ in SOD CHL 0.45% 1,000 ML IV SCH ×2 (00:17→14:23)
[2022-12-19] MEDS: ceFAZolin 2 GM/D5W100ml 100 ML IV SCH ×3 (06:09→21:37)
[2022-12-19 06:51] LABS: Basophils # (auto) 0 10 ^3/uL (0-0.2); Basophils % (auto) 0.4 % (0.0-2.0); Eosinophils # (auto) 0.1 10 ^3/uL (0-0.8); Eosinophils % (auto) 1.7 % (0.0-7.0); Hematocrit 32.3 % (36.0-46.0); Hemoglobin 10.8 g/dL (12.2-16.2); Lymphocytes # (auto) 2.7 10 ^3/uL (0.4-5.4); Lymphocytes % (auto) 36.3 % (10.0-50.0); Mean Corpuscular Hemoglobin 28.5 pg (28.0-32.0); Mean Corpuscular Hgb Conc. 33.5 g/dL (32.0-36.0); Mean Corpuscular Volume 85.3 fL (80.0-100.0); Monocytes # (auto) 0.9 10 ^3/uL (0-1.3); Monocytes % (auto) 12.7 % (0.0-12.0); Neutrophils # (auto) 3.6 10 ^3/uL (1.6-8.6); Neutrophils % (auto) 48.9 % (37.0-80.0); Nucleated Red Blood Cells % 0.2 %; Red Blood Cells 3.79 10^6/uL (4.0-5.20); Red Cell Distribution Width 18.7 % (11.8-14.3); White Blood Cell 7.3 10^3/uL (4.4-10.8)
[2022-12-19 07:10] LABS: Alanine Aminotransferase 12 U/L (7-40); Albumin 3.5 g/dL (3.2-4.8); Alkaline Phosphatase 135 U/L (46-116); Anion Gap 10 (5-15); Aspartate Aminotransferase 14 U/L (13-40); Bilirubin, Total 0.5 mg/dL (0.2-1.0); Calcium 9.1 mg/dL (8.5-10.1); Carbon Dioxide 22 mmol/L (20-30); Chloride 106 mmol/L (98-107); Glucose 224 mg/dL (74-106); Potassium 3.3 mmol/L (3.5-5.1); Sodium 138 mmol/L (136-145); Total Protein 6.7 g/dL (5.7-8.2)
[2022-12-19 07:11] LABS: BUN/Creatinine Ratio 9.8 (10.0-20.0); Blood Urea Nitrogen < 5 mg/dL (9-23)
[2022-12-19 10:03] LABS: Magnesium 1.8 mg/dL (1.6-2.6)
[2022-12-19] MEDS: PANTOPRAZOLE 40 MG/10 ML VIAL INJ IV SCH (10:35)
[2022-12-19] MEDS: B-COMPLEX W/ C & FOLIC ACID(NEPHROVITE TAB) PO SCH (10:36)
[2022-12-19] MEDS: THIAMINE HCL 100 MG TAB PO SCH (10:36)
[2022-12-19] MEDS: SODIUM CHLOR 0.9% PF (SALINE LOCK) 10ML VIAL/SYR IV SCH ×2 (10:36→21:36)
[2022-12-19] MEDS: ENOXAPARIN SOD 40 MG/0.4 ML SYRINGE SC SCH (10:36)
[2022-12-19] MEDS ORDERED: POTASSIUM CHL 20MEQ/100ML 100 ML IV SCH (10:45)
[2022-12-19] MEDS ORDERED: DEXTROSE (50%) 50ML SYRG IV PRN (10:45)
[2022-12-19] MEDS: INSULIN LANTUS (GLARGINE) 1 /0.01ml (100units/ml) SC SCH (10:55)
[2022-12-19] MEDS: POTASSIUM CHL 20MEQ/100ML 100 ML IV PRN (10:56)
[2022-12-19] MEDS ORDERED: IOHEXOL 300 MG/ML 100ML BOTTLE IJ ONE (11:16)
[2022-12-19] MEDS: dilTIAZem HCL 180MG ER CAP PO SCH (11:40)
[2022-12-19] MEDS: InsuLIN REG 1unit/0.01ml Soln (100units/ml) SC SCH ×3 (12:41→20:24)
[2022-12-19] MEDS ORDERED: POTASSIUM EFFERVESENT TAB 25 MEQ PO ONE (13:00)
[2022-12-19] MEDS ORDERED: LACTULOSE 20Gm/30ML SOLN PO SCH (22:00)
[2022-12-19] MEDS ORDERED: INSULIN LANTUS (GLARGINE) 1 /0.01ml (100units/ml) SC SCH (22:00)
[2022-12-20] VITALS (9 sets, daily range): BP systolic 94–115; BP diastolic 51–77; PULSE 88–108; RESP 12–25; TEMP 98.2–99.5; O2SAT 93–100
[2022-12-20] MEDS: ACCU-CHEK COMFORT CURVE STRIP VI SCH ×12 (00:22→21:44)
[2022-12-20] MEDS: InsuLIN REG 1unit/0.01ml Soln (100units/ml) SC SCH ×6 (00:24→22:08)
[2022-12-20] MEDS: POTASSIUM CHLORIDE 40 MEQ in SOD CHL 0.45% 1,000 ML IV SCH ×2 (04:54→19:45)
[2022-12-20] MEDS: ceFAZolin 2 GM/D5W100ml 100 ML IV SCH ×3 (05:41→22:12)
[2022-12-20 06:53] LABS: Basophils # (auto) 0 10 ^3/uL (0-0.2); Basophils % (auto) 0.5 % (0.0-2.0); Eosinophils # (auto) 0.1 10 ^3/uL (0-0.8); Eosinophils % (auto) 1.5 % (0.0-7.0); Hematocrit 30.2 % (36.0-46.0); Hemoglobin 10.2 g/dL (12.2-16.2); Lymphocytes # (auto) 2.4 10 ^3/uL (0.4-5.4); Lymphocytes % (auto) 39.4 % (10.0-50.0); Mean Corpuscular Hemoglobin 28.8 pg (28.0-32.0); Mean Corpuscular Hgb Conc. 33.9 g/dL (32.0-36.0); Mean Corpuscular Volume 85.1 fL (80.0-100.0); Monocytes # (auto) 0.7 10 ^3/uL (0-1.3); Monocytes % (auto) 10.8 % (0.0-12.0); Neutrophils # (auto) 2.9 10 ^3/uL (1.6-8.6); Neutrophils % (auto) 47.8 % (37.0-80.0); Nucleated Red Blood Cells % 0.1 %; Red Blood Cells 3.55 10^6/uL (4.0-5.20); Red Cell Distribution Width 18.4 % (11.8-14.3)
[2022-12-20 07:03] LABS: Anion Gap 8 (5-15); Carbon Dioxide 27 mmol/L (20-30); Chloride 104 mmol/L (98-107); Potassium 3.2 mmol/L (3.5-5.1); Sodium 139 mmol/L (136-145)
[2022-12-20 07:04] LABS: Calcium 8.6 mg/dL (8.5-10.1)
[2022-12-20 07:09] LABS: Glucose 192 mg/dL (74-106)
[2022-12-20 07:17] LABS: BUN/Creatinine Ratio 9.8 (10.0-20.0); Blood Urea Nitrogen < 5 mg/dL (9-23)
[2022-12-20] MEDS: PANTOPRAZOLE 40 MG/10 ML VIAL INJ IV SCH (09:27)
[2022-12-20] MEDS: ENOXAPARIN SOD 40 MG/0.4 ML SYRINGE SC SCH (09:27)
[2022-12-20] MEDS: THIAMINE HCL 100 MG TAB PO SCH (09:28)
[2022-12-20] MEDS: POTASSIUM EFFERVESENT TAB 25 MEQ PO SCH (09:28)
[2022-12-20] MEDS: B-COMPLEX W/ C & FOLIC ACID(NEPHROVITE TAB) PO SCH (09:28)
[2022-12-20] MEDS: SODIUM CHLOR 0.9% PF (SALINE LOCK) 10ML VIAL/SYR IV SCH ×2 (09:28→22:11)
[2022-12-20] MEDS: INSULIN LANTUS (GLARGINE) 1 /0.01ml (100units/ml) SC SCH ×2 (09:34→22:17)
[2022-12-20] MEDS: dilTIAZem HCL 180MG ER CAP PO SCH (14:39)
[2022-12-21] VITALS (7 sets, daily range): BP systolic 95–113; BP diastolic 52–72; PULSE 82–101; RESP 14–26; TEMP 97–98.8; O2SAT 92–100
[2022-12-21] MEDS: ACCU-CHEK COMFORT CURVE STRIP VI SCH ×6 (01:24→21:44)
[2022-12-21] MEDS: InsuLIN REG 1unit/0.01ml Soln (100units/ml) SC SCH ×5 (01:33→16:16)
[2022-12-21] MEDS: POTASSIUM CHLORIDE 40 MEQ in SOD CHL 0.45% 1,000 ML IV SCH ×2 (03:33→11:04)
[2022-12-21 05:07] LABS: Anion Gap 7 (5-15); Carbon Dioxide 30 mmol/L (20-30); Chloride 103 mmol/L (98-107); Potassium 3.3 mmol/L (3.5-5.1); Sodium 140 mmol/L (136-145)
[2022-12-21 05:08] LABS: Basophils # (auto) 0 10 ^3/uL (0-0.2); Basophils % (auto) 0.7 % (0.0-2.0); Calcium 8.3 mg/dL (8.7-10.4); Eosinophils # (auto) 0.1 10 ^3/uL (0-0.8); Eosinophils % (auto) 1.9 % (0.0-7.0); Hematocrit 29.3 % (36.0-46.0); Hemoglobin 9.8 g/dL (12.2-16.2); Lymphocytes # (auto) 2.2 10 ^3/uL (0.4-5.4); Lymphocytes % (auto) 41.1 % (10.0-50.0); Mean Corpuscular Hemoglobin 28.8 pg (28.0-32.0); Mean Corpuscular Hgb Conc. 33.3 g/dL (32.0-36.0); Mean Corpuscular Volume 86.3 fL (80.0-100.0); Monocytes # (auto) 0.5 10 ^3/uL (0-1.3); Monocytes % (auto) 9.6 % (0.0-12.0); Neutrophils # (auto) 2.5 10 ^3/uL (1.6-8.6); Neutrophils % (auto) 46.7 % (37.0-80.0); Nucleated Red Blood Cells % 0.1 %; Red Blood Cells 3.39 10^6/uL (4.0-5.20); Red Cell Distribution Width 18.3 % (11.8-14.3); White Blood Cell 5.3 10^3/uL (4.4-10.8)
[2022-12-21 05:13] LABS: Glucose 175 mg/dL (74-106); Magnesium 1.6 mg/dL (1.6-2.6)
[2022-12-21 05:51] LABS: BUN/Creatinine Ratio 11.1 (10.0-20.0); Blood Urea Nitrogen < 5 mg/dL (9-23)
[2022-12-21] MEDS: ceFAZolin 2 GM/D5W100ml 100 ML IV SCH ×3 (06:25→21:55)
[2022-12-21] MEDS: SODIUM CHLOR 0.9% PF (SALINE LOCK) 10ML VIAL/SYR IV SCH ×2 (07:38→21:52)
[2022-12-21] MEDS: ENOXAPARIN SOD 40 MG/0.4 ML SYRINGE SC SCH (08:07)
[2022-12-21] MEDS: THIAMINE HCL 100 MG TAB PO SCH (08:07)
[2022-12-21] MEDS: PANTOPRAZOLE 40 MG/10 ML VIAL INJ IV SCH (08:07)
[2022-12-21] MEDS: B-COMPLEX W/ C & FOLIC ACID(NEPHROVITE TAB) PO SCH (08:07)
[2022-12-21] MEDS: POTASSIUM EFFERVESENT TAB 25 MEQ PO SCH ×2 (08:07→21:52)
[2022-12-21] MEDS: INSULIN LANTUS (GLARGINE) 1 /0.01ml (100units/ml) SC SCH ×2 (08:09→21:53)
[2022-12-21] MEDS: dilTIAZem HCL 180MG ER CAP PO SCH (08:21)
[2022-12-21] MEDS ORDERED: DEXTROSE (50%) 50ML SYRG IV PRN (12:00)
[2022-12-21] MEDS: MAGNESIUM SULFATE 1GM/100ML 100 ML IV SCH ×2 (13:16→13:57)
[2022-12-21 21:30] LABS: Urine Bacteria NONE SEEN /hpf (None Seen); Urine Blood Negative /uL (Negative); Urine Clarity Clear (Clear); Urine Color Colorless (Yellow); Urine Protein, UAD Negative (Negative); Urine Specific Gravity 1.009 (1.001-1.035); Urine Urobilinogen Normal (Negative); Urine WBC 1 /hpf (0 - 5); Urine pH 7.5 (5.0-8.0)
[2022-12-21] MEDS ORDERED: ceFAZolin 1GM/50ML 0 ML IV ONE (21:55)
[2022-12-21] MEDS ORDERED: InsuLIN REG 1unit/0.01ml Soln (100units/ml) SC SCH (22:00)
[2022-12-22 05:00] VITALS: BP 112/66; PULSE 93; RESP 16; TEMP 98.5; O2SAT 98
[2022-12-22] MEDS: ceFAZolin 2 GM/D5W100ml 100 ML IV SCH ×2 (06:31→13:35)
[2022-12-22] MEDS: ACCU-CHEK COMFORT CURVE STRIP VI SCH ×2 (06:31→11:31)
[2022-12-22] MEDS: InsuLIN REG 1unit/0.01ml Soln (100units/ml) SC SCH ×2 (06:33→11:32)
[2022-12-22 06:35] LABS: Calcium 8.4 mg/dL (8.7-10.4); Chloride 106 mmol/L (98-107); Potassium 3.6 mmol/L (3.5-5.1); Sodium 140 mmol/L (136-145)
[2022-12-22 06:36] LABS: Anion Gap 6 (5-15); Carbon Dioxide 28 mmol/L (20-30)
[2022-12-22 06:41] LABS: Glucose 173 mg/dL (74-106)
[2022-12-22 06:42] LABS: Magnesium 2.2 mg/dL (1.6-2.6)
[2022-12-22 06:56] LABS: BUN/Creatinine Ratio 10.4 (10.0-20.0); Blood Urea Nitrogen < 5 mg/dL (9-23)
[2022-12-22 08:00] VITALS: PULSE 87; RESP 17; O2SAT 96
[2022-12-22 08:55] VITALS: BP 101/42; PULSE 87; RESP 17; TEMP 97.8; O2SAT 96
[2022-12-22] MEDS: dilTIAZem HCL 180MG ER CAP PO SCH (10:00)
[2022-12-22] MEDS: B-COMPLEX W/ C & FOLIC ACID(NEPHROVITE TAB) PO SCH (11:27)
[2022-12-22] MEDS: THIAMINE HCL 100 MG TAB PO SCH (11:27)
[2022-12-22] MEDS: ENOXAPARIN SOD 40 MG/0.4 ML SYRINGE SC SCH (11:28)
[2022-12-22] MEDS: SODIUM CHLOR 0.9% PF (SALINE LOCK) 10ML VIAL/SYR IV SCH (11:28)
[2022-12-22] MEDS: POTASSIUM EFFERVESENT TAB 25 MEQ PO SCH (11:31)
[2022-12-22] MEDS: INSULIN LANTUS (GLARGINE) 1 /0.01ml (100units/ml) SC SCH (11:33)
[2022-12-22] MEDS ORDERED: INSUINJ37 SC (12:06)
[2022-12-22] MEDS ORDERED: DILT-102 PO (12:06)
[2022-12-22] MEDS ORDERED: INSU100I47 SC (12:09)
[2022-12-22] MEDS ORDERED: BLOO1KIT60 XX (12:13)
[2022-12-22 13:00] VITALS: BP 103/63; PULSE 54; RESP 17; TEMP 98.4; O2SAT 100
[2022-12-22] MEDS ORDERED: AZIT-43 PO (13:20)
[2022-12-22 14:05] VITALS: BP 103/63; PULSE 54; RESP 17; TEMP 98.4; O2SAT 100
[2022-12-27 07:58] LABS: HSV 1 IgG Antibody <0.91 index (0.00-0.90); HSV 2 IgG Antibody 1.15 index (0.00-0.90)
== END 2022-12-22 16:15 | disposition home or self-care (01) | DRG 720 ==
LOC: ER 14:15 → TELE 17:07 → ICU WEST 12-10 03:00 → DOU IN ICU 12-17 15:20 → WEST WING 12-21 16:54
PROVIDERS: ADMIT Nurse Practitioner Family; ATTEND Nurse Practitioner Acute Care
PROC: 02HV33Z Insertion of Infusion Device into Superior Vena Cava, Percutaneous Approach (ICD-10-PCS; principal; 2022-12-10)
PROC: B548ZZA Ultrasonography of Superior Vena Cava, Guidance (ICD-10-PCS; 2022-12-10)
DX: A41.9 Sepsis, unspecified organism (principal); N17.0 Acute kidney failure with tubular necrosis; E10.10 Type 1 diabetes mellitus with ketoacidosis without coma; J15.211 Pneumonia due to Methicillin susceptible Staphylococcus aureus; J15.69 Pneumonia due to other Gram-negative bacteria; E86.0 Dehydration; E87.1 Hypo-osmolality and hyponatremia; B37.49 Other urogenital candidiasis; E87.6 Hypokalemia; E66.01 Morbid (severe) obesity due to excess calories; J20.9 Acute bronchitis, unspecified; Z68.38 Body mass index [BMI] 38.0-38.9, adult; Z82.49 Family history of ischemic heart disease and other diseases of the circulatory system; Z86.32 Personal history of gestational diabetes; J15.9 Unspecified bacterial pneumonia
CPT/HCPCS: 36415; 36569; 36600; 71045; 74178; 80048; 80053; 80061; 80307; 80329; 81001; 82010; 82570; 82805; 82962; 83036; 83605; 83690; 83735; 83930; 83935; 84100; 84132; 84133; 84300; 84443; 84702; 85007; 85025; 85027; 85610; 85730; 86592; 86695; 86696; 86703; 87040; 87070; 87077; 87081; 87086; 87186; 87205; 87804; 93005; 93306; 94668; 96361; 96372; 96374; 99291; C9113; G0378; J0690; J0696; J1815; J1885; J1956; J2001; J2405; J3480; J3490